=== PATIENT | female | born 1985 | race Caucasian/White ===

== ENCOUNTER 2016-07-15 22:51 | Emergency (ER) | payer MEDICAID ==
[2016-07-15] MEDS ORDERED: ASPIRIN 81 MG TABLET, CHEWABLE PO ONE (23:21)
[2016-07-16 00:34] LABS: ABSOLUTE BASOPHILS # (AUTO) 0.1 10^3/uL (0.0-0.2); ABSOLUTE EOSINOPHILS # (AUTO) 0.2 10^3/uL (0.0-0.6); ABSOLUTE LYMPHOCYTES (AUTO) 1.4 10^3/uL (0.5-4.7); ABSOLUTE MONOCYTES (AUTO) 0.8 10^3/uL (0.1-1.4); BASOPHILS % (AUTO) 0.6 % (0-2); EOSINOPHILS % (AUTO) 1.3 % (0-6); HEMATOCRIT 40.4 % (36.0-47.0); HEMOGLOBIN 13.7 g/dL (12.0-15.5); HGB HCT DIFFERENCE 0.7; LYMPHOCYTES % (AUTO) 11.3 % (13-45); MEAN CORPUSCULAR HEMOGLOBIN 29.2 pg (27.0-33.4); MEAN CORPUSCULAR HGB CONC 34.1 g/dL (32.0-36.0); MEAN CORPUSCULAR VOLUME 86 fl (80-97); MONOCYTES % (AUTO) 6.1 % (3-13); RED BLOOD COUNT 4.71 10^6/uL (3.72-5.28); RED CELL DISTRIBUTION WIDTH 12.1 % (11.5-14.0); SEGMENTED NEUTROPHILS % (AUTO) 80.7 % (42-78); WHITE BLOOD COUNT 12.4 10^3/uL (4.0-10.5)
[2016-07-16 00:47] LABS: ALANINE AMINOTRANSFERASE 100 U/L (9-52); ALBUMIN 4.6 g/dL (3.5-5.0); ALKALINE PHOSPHATASE 137 U/L (38-126); ANION GAP 14 (5-19); ASPARTATE AMINO TRANSFERASE 36 U/L (14-36); BILIRUBIN,DIRECT 0.2 mg/dL (0.0-0.4); BILIRUBIN,TOTAL 1.1 mg/dL (0.2-1.3); BLOOD UREA NITROGEN 16 mg/dL (7-20); CALCIUM 10.4 mg/dL (8.4-10.2); CARBON DIOXIDE 26 mmol/L (22-30); CHLORIDE 103 mmol/L (98-107); CREATINE KINASE 49 U/L (30-135); CREATININE RESULT 0.65 mg/dL (0.52-1.25); GLUCOSE 110 mg/dL (75-110); POTASSIUM 4.6 mmol/L (3.6-5.0); SODIUM 142.8 mmol/L (137-145); TOTAL PROTEIN 8.3 g/dL (6.3-8.2)
[2016-07-16] MEDS ORDERED: KETOROLAC TROMETHAMINE INJ/PF 30 MG/1 ML SDV IV ONE (00:57)
[2016-07-16] MEDS ORDERED: MORPHINE SULFATE 10 MG/ML INJ IV ONE (00:57)
[2016-07-16] MEDS ORDERED: ONDANSETRON HCL INJ/PF 4 MG/2 ML SDV IV ONE (00:57)
[2016-07-16] MEDS ORDERED: METHOCARBAMOL INJ/PF 1000 MG/10 ML SDV IV ONE (00:58)
--- NOTE | 2016-07-16 00:58 | ER Document Report ---
ED Neck/Back Problem - General Mode of Arrival: Ambulatory Information source: Patient TRAVEL OUTSIDE OF THE [place] IN LAST 30 DAYS: No - HPI Patient complains to provider of: Pain, Neck Onset: Other - Refer to HPI notes Similar symptoms previously: No Recently seen / treated by doctor: No <CHAZ DAWN - Last Filed: 07/16/16 01:48> <GIULIA MURPHY - Last Filed: 07/16/16 02:41> - General Chief Complaint: Neck Pain >24hrs old Stated Complaint: NECK PAIN Time Seen by Provider: 07/16/16 00:43 Notes: Patient is a 31-year-old female presenting to the emergency department for neck pain. Patient states her pain was gradually onset since Monday. Patient states her pain is in the left posterior neck and it feels very tight. Patient also has had a lack of sleep recently due to her 2 children at home who are not sleeping through the night. Patient states she may have been sleeping incorrectly on her neck. Patient has no known drug allergies. (CHAZ DAWN) - Related Data Allergies/Adverse Reactions: No Known Allergies Allergy (Verified 06/13/15 03:20) Past Medical History - General Information source: Patient - Social History Smoking Status: Never Smoker Cigarette use (# per day): No Chew tobacco use (# tins/day): No Frequency of alcohol use: None Drug Abuse: None Lives with: Family, Spouse/Significant other Family History: None Patient has suicidal ideation: No Patient has homicidal ideation: No Skin Medical History: Reports Hx MRSA - THINKS ITS MRSA BUT HAS NEVER BEEN CHECKED. GETS RECURRING ABSCESSES Past Surgical History: Reports: Hx Gynecologic Surgery - Ectopic rupture, salpingectomy - Immunizations Hx Diphtheria, Pertussis, Tetanus Vaccination: No <CHAZ DAWN - Last Filed: 07/16/16 01:48> Review of Systems - Review of Systems Constitutional: No symptoms reported EENT: No symptoms reported Cardiovascular: No symptoms reported Respiratory: No symptoms reported Gastrointestinal: No symptoms reported Genitourinary: No symptoms reported Female Genitourinary: No symptoms reported Musculoskeletal: See HPI Skin: No symptoms reported Hematologic/Lymphatic: No symptoms reported Neurological/Psychological: No symptoms reported -: Yes All other systems reviewed and negative <CHAZ DAWN - Last Filed: 07/16/16 01:48> Physical Exam - Vital signs Interpretation: Normal - General General appearance: Appears well, Alert In distress: Mild - HEENT Head: Normocephalic, Atraumatic Eyes: Normal Pupils: PERRL Mucous membranes: Moist Neck: Other - tenderness to the posterior lateral neck musculature near the nuchal ridge insertion; patient is able to flex/extend as well as rotate neck from left to right without difficulty - Respiratory Respiratory status: No respiratory distress Chest status: Nontender Breath sounds: Normal Chest palpation: Normal - Cardiovascular Rhythm: Regular Heart sounds: Normal auscultation Murmur: No - Abdominal Inspection: Normal Distension: No distension Bowel sounds: Normal Tenderness: Nontender Organomegaly: No organomegaly - Back Back: Normal, Nontender - Extremities General upper extremity: Normal inspection, Normal ROM, Normal strength General lower extremity: Normal inspection, Normal ROM, Normal strength - Neurological Neuro grossly intact: Yes Cognition: Normal Orientation: AAOx4 West Coma Scale Eye Opening: Spontaneous [place] Coma Scale Verbal: Oriented [place] Coma Scale Motor: Obeys Commands [place] Coma Scale Total: 15 Speech: Normal - Psychological Associated symptoms: Normal affect, Normal mood - Skin Skin Temperature: Warm Skin Moisture: Dry <CHAZ DAWN - Last Filed: 07/16/16 01:48> <GIULIA MURPHY - Last Filed: 07/16/16 02:41> - Vital signs Vitals: Temp Pulse Resp BP Pulse Ox 98.0 F 98 18 149/91 H 97 07/15/16 23:04 07/15/16 23:04 07/15/16 23:04 07/15/16 23:04 07/15/16 23:04 Course - Laboratory Result Diagrams: 07/16/16 00:10 07/16/16 00:10 <CHAZ DAWN - Last Filed: 07/16/16 01:48> - Laboratory Result Diagrams: 07/16/16 00:10 07/16/16 00:10 <GIULIA MURPHY - Last Filed: 07/16/16 02:41> - Vital Signs Vital signs: Temp Pulse Resp BP Pulse Ox 98.0 F 98 18 149/91 H 97 07/15/16 23:04 07/15/16 23:04 07/15/16 23:04 07/15/16 23:04 07/15/16 23:04 - Laboratory Laboratory results interpreted by me: 06/03/17 06/03/17 00:10 00:10 WBC 12.4 H Seg Neutrophils % 80.7 H Lymphocytes % 11.3 L Absolute Neutrophils 10.0 H Calcium 10.4 H ALT 100 H Alkaline Phosphatase 137 H Total Protein 8.3 H Discharge <CHAZ DAWN - Last Filed: 07/16/16 01:48> <GIULIA MURPHY - Last Filed: 07/16/16 02:41> - Discharge Clinical Impression: Cervical muscle strain Qualifiers: Encounter type: initial encounter Qualified Code(s): S16.1XXA - Strain of muscle, fascia and tendon at neck level, initial encounter Condition: Stable Disposition: HOME, SELF-CARE Additional Instructions: Take the medication as prescribed for the neck muscle pain and tension. Use moist heat applications to the painful neck muscles. Rest and try to avoid turning and twisting her head for the next several days. Use the soft neck collar for support. Follow-up with your doctor if not improving. Prescriptions: Methocarbamol [Robaxin 500 mg Tablet] 500 mg PO QID #20 tablet Naproxen 500 mg PO BID #14 tablet Scribe Attestation: 07/16/16 02:41 I personally performed the services described in the documentation, reviewed and edited the documentation which was dictated to the scribe in my presence, and it accurately records my words and actions. (GIULIA MURPHY) Scribe Documentation - Scribe Written by Noel:: Noel Arriaza, 07/16/16 1:14 acting as scribe for :: Carmine <CHAZ DAWN - Last Filed: 07/16/16 01:48>
[2016-07-16 00:59] LABS: CREATINE KINASE MB 0.37 ng/mL (<4.55)
[2016-07-16 01:01] LABS: TROPONIN I < 0.012 ng/mL
--- NOTE | 2016-07-16 01:37 | RADIOLOGY REPORT (SQ) ---
EXAM DESCRIPTION: CHEST PA/LAT COMPLETED DATE/TIME: 07/16/2016 12:28 am REASON FOR STUDY: chest tightness COMPARISON: None. EXAM PARAMETERS: NUMBER OF VIEWS: two views TECHNIQUE: Digital Frontal and Lateral radiographic views of the chest acquired. RADIATION DOSE: NA LIMITATIONS: none FINDINGS: LUNGS AND PLEURA: No consolidation, pneumothorax or pleural effusion. MEDIASTINUM AND HILAR STRUCTURES: No masses or contour abnormalities. HEART AND VASCULAR STRUCTURES: Heart normal size. No evidence for failure. BONES: No acute findings. HARDWARE: None in the chest. IMPRESSION: No acute radiographic finding in the chest. TECHNICAL DOCUMENTATION: JOB ID: [id number] [employer]- All Rights Reserved
[2016-07-16 03:20] VITALS: BP 125/86
== END 2016-07-16 03:19 | disposition home or self-care (01) ==
LOC: ER 22:51
DX: S16.1XXA Strain of muscle, fascia and tendon at neck level, initial encounter (principal); M54.2 Cervicalgia; X58.XXXA Exposure to other specified factors, initial encounter
CPT/HCPCS: 99283; 96374; 96375; 36415; 82553; 82550; 85025; 80053; 84484; 71020; J2800; J1885; J2405; 96365

== ENCOUNTER 2016-09-23 16:20 | Emergency (ER) | payer SELFPAY ==
--- NOTE | 2016-09-23 16:55 | RADIOLOGY REPORT (SQ) ---
EXAM DESCRIPTION: WRIST LEFT 3 VIEWS COMPLETED DATE/TIME: 09/23/2016 4:47 pm REASON FOR STUDY: fall, pain COMPARISON: None. NUMBER OF VIEWS: Three views. TECHNIQUE: AP, lateral, and oblique radiographic images acquired of the left wrist. LIMITATIONS: None. FINDINGS: MINERALIZATION: Normal. BONES: No acute fracture or dislocation. No worrisome bone lesions. Normal alignment. SOFT TISSUES: No metallic foreign bodies. OTHER: If an occult fracture suspected clinically, consider followup imaging. IMPRESSION: Nothing acute. No fracture identified. TECHNICAL DOCUMENTATION: JOB ID: [id number]- All Rights Reserved
--- NOTE | 2016-09-23 16:59 | RADIOLOGY REPORT (SQ) ---
EXAM DESCRIPTION: HAND LEFT 3 VIEWS COMPLETED DATE/TIME: 09/23/2016 4:47 pm REASON FOR STUDY: fall, pain COMPARISON: None. EXAM PARAMETERS: NUMBER OF VIEWS: Three views. TECHNIQUE: AP, lateral and oblique radiographic images acquired of the left hand. LIMITATIONS: None. FINDINGS: MINERALIZATION: Normal. BONES: No displaced fracture seen. There is a suspicious area of the proximal metacarpal of the thumb at the wrist, concerning for nondi splaced fracture. One view only. Correlate clinically. JOINTS: Joint spaces well-maintained. SOFT TISSUES: No metallic foreign bodies. OTHER: No other significant finding. IMPRESSION: No displaced fracture. There is a suspicious area of the proximal metacarpal of thumb at the wrist, concerning for nondispla terry fracture one view only. Correlate clinically or with followup imaging. TECHNICAL DOCUMENTATION: JOB ID: [id number]- All Rights Reserved
[2016-09-23] MEDS ORDERED: HYDROCODONE/ACETAMINOPHEN 5-325 MG 6 TAB/DSPK PO PRN (17:14)
[2016-09-23] MEDS ORDERED: ACETAMINOPHEN 325 MG TABLET PO ONE (17:14)
--- NOTE | 2016-09-23 17:40 | ER Document Report ---
ED Hand/Wrist Injury - General Chief Complaint: Wrist Injury Stated Complaint: FALL/LEFT WRIST,ARM INJURY TRAVEL OUTSIDE OF THE [place] IN LAST 30 DAYS: No - HPI Patient complains to provider of: wrist pain Onset: Just prior to arrival Where: Home Timing: Constant Quality of pain: Achy Context: Fall - she stumbled down her stairs and fell onto her outstretched left hand. - Related Data Allergies/Adverse Reactions: No Known Allergies Allergy (Verified 09/23/16 16:27) Home Medications: Current Home Medications No Home Medications 09/23/16 [History] Past Medical History - Social History Smoking Status: Never Smoker Frequency of alcohol use: Occasional Drug Abuse: Marijuana Family History: None Renal/ Medical History: Denies: Hx Peritoneal Dialysis Skin Medical History: Reports Hx MRSA - THINKS ITS MRSA BUT HAS NEVER BEEN CHECKED. GETS RECURRING ABSCESSES Past Surgical History: Reports: Hx Gynecologic Surgery - Ectopic rupture, salpingectomy - Immunizations Hx Diphtheria, Pertussis, Tetanus Vaccination: No Review of Systems - Review of Systems Constitutional: No symptoms reported Musculoskeletal: See HPI Skin: No symptoms reported Neurological/Psychological: No symptoms reported -: Yes All other systems reviewed and negative Physical Exam - Vital signs Vitals: Temp Pulse Resp BP Pulse Ox 97.7 F 114 H 18 141/97 H 97 09/23/16 16:23 09/23/16 16:23 09/23/16 16:23 09/23/16 16:23 09/23/16 16:23 - General General appearance: Appears well, Alert In distress: None - Cardiovascular Pulses: Normal: Radial Normal capillary refill: Yes - Extremities Elbow: Normal Forearm: Normal Wrist: Tender - distal radius, Limited ROM. No: Axial load of thumb pain, Deformity, Dislocation, Laceration Hand: Normal, Nontender. No: Deformity, Dislocation, Ecchymosis, Swelling, Tendon deficit - Neurological Neuro grossly intact: Yes Cognition: Normal Orientation: AAOx4 [place] Coma Scale Eye Opening: Spontaneous West Coma Scale Verbal: Oriented [place] Coma Scale Motor: Obeys Commands [place] Coma Scale Total: 15 - Skin Skin Temperature: Warm Skin Moisture: Dry Skin Color: Normal Skin Turgor: Elastic Skin irregularity: negative: Laceration Course - Re-evaluation Re-evalutation: 09/23/16 19:47 Patient is a 31-year-old female who is hemodynamic stable, no acute distress afebrile. Presentation and x-ray concerning for distal radial fracture. Discussion with radiologist shows concerns for nondisplaced distal radius fracture. patient placed in splint and to follow-up with primary care in 10 days for repeat imaging.. - Vital Signs Vital signs: Temp Pulse Resp BP Pulse Ox 98.2 F 92 18 137/96 H 97 09/23/16 17:49 09/23/16 17:49 09/23/16 17:49 09/23/16 17:49 09/23/16 17:49 - Diagnostic Test Radiology reviewed: Image reviewed, Reports reviewed Procedures - Immobilization Left Wrist Pre-Proc Neuro Vasc Exam: Normal Immobilizer type: Sugar tong - reverse Performed by: PCT Post-Proc Neuro Vasc Exam: Normal Discharge - Discharge Clinical Impression: Distal radius fracture, left Qualifiers: Encounter type: initial encounter Fracture type: closed Condition: Good Disposition: HOME, SELF-CARE Instructions: Fractured Radius ([facility]), Splint Precautions ([facility]) Additional Instructions: Please follow up with your primary care doctor in 10 days for new x-ray Referrals: RASHID JASSO, [ACTIVE STAFF] - Follow up as needed
[2016-09-23 17:50] VITALS: BP 137/96
== END 2016-09-23 17:50 | disposition home or self-care (01) ==
LOC: ER 16:20
PROC: 2W3DX1Z Immobilization of Left Lower Arm using Splint (ICD-10-PCS; principal; 2016-09-23)
DX: S52.502A Unspecified fracture of the lower end of left radius, initial encounter for closed fracture (principal); W19.XXXA Unspecified fall, initial encounter
CPT/HCPCS: 99283